=== PATIENT | female | born 1940 | race Caucasian/White ===

== ENCOUNTER 2020-04-20 09:11 | Outpatient (CLI) | payer MEDICARE ==
--- NOTE | 2020-04-20 09:55 | ULT ---
ULTRASOUND ABDOMINAL AORTA: HISTORY: Peripheral vascular disease, screen for abdominal aortic aneurysm. FINDINGS: The abdominal aorta measurements are as follows. Proximal: 2 x 1.4 x 1.7 cm. Mid: 1.5 x 1.8 x 2.3 cm. Distal: 2 x 1.4 x 1.8 cm. IMPRESSION: No evidence of abdominal aortic aneurysm. POS: [facility]
--- NOTE | 2020-04-20 10:51 | CT ---
CT CHEST WITHOUT CONTRAST FOR LUNG CANCER SCREENING: HISTORY: Personal history of nicotine dependence. COMPARISON: None. FINDINGS: Lung screening specific (lung-RADS): No suspicious solid, part solid, or ground-glass pulmonary nodu le. Two separate 2 mm pulmonary nodules right lower lobe axial image 77 coronal image 95. Potentially significant incidentals (lung-RADS category S): Negative. Pulmonary incidentals: Scattered small micronodules some with a pleural tail largest lower lobe axia l image 110 measuring 2 mm. Some mild bronchiectasis. Low-grade debris within the left and right ma instem bronchi. Other incidentals: Moderate vascular calcifications of the aorta. The proximal descending thoracic aorta measures 3.3 cm. The distal thoracic aorta measures 3.5 cm. No significant pericardial fluid. Sternum and manubrium are intact. The thoracic spine is intact. No suspicious osteolytic or osteobl astic lesions. IMPRESSION: 1. Lung RADS category 2: benign appearance or behavior. Continued annual screening is recommended. 2. Lung RADS category S: negative. No new or potentially significant incidental findings requiring urgent additional followup. 3. Scattered pulmonary micronodules measuring less than 3 mm. 4. Proximally seen thoracic aorta measures up to 3.3 cm and descending thoracic aorta distally abov e the diaphragmatic hiatus measures 3.5 cm. POS: [facility]
--- NOTE | 2020-04-20 13:43 | ULT ---
BILATERAL LOWER EXTREMITY ARTERIAL DOPPLER STUDY: 04/20/20 Arteries to both lower extremities evaluated with ultrasound color Doppler and spectral analysis with velocities. INDICATIONS: Peripheral vascular disease. Long history of smoking. RIGHT LOWER EXTREMITY: The right common femoral artery shows a monophasic waveform with velocity recording at 147 cm/s systo lic. The profunda is monophasic. The right femoral artery does not show an adequate waveform and is not adequately evaluated. This may be due to poor flow and proximal occlusion. Very low velocities are noted. The right popliteal artery is monophasic. All arteries below the knee including anterior tibial arter y, posterior tibial artery, and dorsalis pedis are monophasic with reduced velocities. LEFT LOWER EXTREMITY: The left common femoral artery is biphasic with velocities at 161 cm/s systolic. The profunda is biphasic. The left femoral artery is biphasic with symmetric velocities. The left popliteal artery is monophasic with reduced velocities. Anterior tibial artery is biphasic with reduced velocities. The posterior tibial artery and dorsalis pedis artery are monophasic. IMPRESSION: Evidence of moderately severe bilateral arterial occlusive disease. Findings are more severe on the r ight as noted above. POS: [facility]
--- NOTE | 2020-04-21 16:09 | MMO ---
Bilateral MAMMO Bilat Screen [facility]. CLINICAL HISTORY: Patient is 79 years old and is seen for screening. The patient has no family history of breast cancer. The patient has no personal history of cancer. VIEWS: The views performed were: bilateral craniocaudal with tomosynthesis and bilateral mediolateral oblique with tomosynthesis. This study has been interpreted with the assistance of computer-aided detection. MAMMOGRAM FINDINGS: There are scattered fibroglandular densities. There are benign appearing calcifications seen in both breasts. There are also vascular calcifications. There are no suspicious masses, suspicious calcifications, or new areas of architectural distortion. IMPRESSION: THERE IS NO MAMMOGRAPHIC EVIDENCE OF MALIGNANCY. A ROUTINE FOLLOW-UP MAMMOGRAM IN 1 YEAR IS RECOMMENDED. THE RESULTS OF THIS EXAM WERE SENT TO THE PATIENT. ACR BI-RADS Category 2 - Benign finding MAMMOGRAPHY NOTE: 1. A negative mammogram report should not delay a biopsy if a dominant of clinically suspicious mass is present. 2. Approximately 10% to 15% of breast cancers are not detected by mammography. 3. Adenosis and dense breasts may obscure an underlying neoplasm. Reported by: DEANDRE ESTEVEZ MD Electonically Signed: [id number]
== END 2020-04-20 09:12 | disposition home or self-care (01) ==
LOC: BICULT 09:11
PROVIDERS: ATTEND Family Medicine
DX: Z12.31 Encounter for screening mammogram for malignant neoplasm of breast (principal); Z13.6 Encounter for screening for cardiovascular disorders; Z12.2 Encounter for screening for malignant neoplasm of respiratory organs; F17.210 Nicotine dependence, cigarettes, uncomplicated; R91.8 Other nonspecific abnormal finding of lung field; I70.213 Atherosclerosis of native arteries of extremities with intermittent claudication, bilateral legs
CPT/HCPCS: 76775; 77063; 77067; 93923; G0297

== ENCOUNTER 2020-07-03 20:47 | Observation (INO) | payer MEDICARE ==
[~2020-07-03 20:47] MED LIST: Iopamidol-370 76% 500 ML 1 ML ONE
--- NOTE | 2020-07-03 21:13 | RAD ---
XR Chest 1 View Portable HISTORY: Dizziness, nausea and light headache COMPARISON: 07/14/2016 FINDINGS: The heart size is normal. The lungs are well expanded without focal areas of consolidation, pneumothorax or pleural effusions. IMPRESSION: No radiographic evidence of acute cardiopulmonary process.
[2020-07-03 21:47] LABS: #Basophils 0.1 thou/uL (0.0-0.2); #Eosinphils 0.2 thou/uL (0.0-0.7); #Lymphocytes 4.5 thou/uL (1.20-3.40); #Monocytes 0.9 thou/uL (0.11-0.59); #Neutrophils 6.1 thou/uL (1.40-6.50); %Basophils 1.1 % (0.0-1.0); %Eosinophils 1.9 % (0.0-10.0); %Lymphocytes 38.3 % (21.0-51.0); %Monocytes 7.5 % (0.0-10.0); %Neutrophils 51.4 % (42.0-75.0); Hemoglobin 15.4 g/dL (12.0-16.0); Mean Corpuscular HGB CONC 33.3 g/dL (32.0-36.0); Mean Corpuscular Hemoglobin 30.4 pg (27.0-31.0); Mean Corpuscular Volume 91.1 fL (78.0-98.0); Mean Platelet Volume 7.7 fL (7.4-10.4); Platelet Count 250 thou/uL (130-400); RBC Distribution Width 11.8 % (11.5-14.5); Red Blood Cell (RBC) Count 5.06 mill/uL (4.20-5.40); White Blood Cell (WBC) Count 11.9 thou/uL (4.8-10.8)
[2020-07-03 22:04] LABS: ALT (SGPT) 11 U/L (8-55); AST (SGOT) 13 U/L (5-34); Albumin 4.5 g/dL (3.4-4.8); Alkaline Phosphatase 82 U/L (40-110); Anion Gap 14 mmol/L (10-20); BUN (Urea Nitrogen) 15 mg/dL (9.8-20.1); Bilirubin, Total 0.3 mg/dL (0.2-1.2); Calc. Creatinine Clearance 0 mL/min (70-130); Calcium 9.3 mg/dL (7.8-10.44); Carbon Dioxide 25 mmol/L (23-31); Chloride 105 mmol/L (98-107); Globulin 2.7 g/dL (2.4-3.5); Glucose 221 mg/dL (83-110); Potassium 3.6 mmol/L (3.5-5.1); Protein, Total 7.2 g/dL (5.8-8.1); Sodium 140 mmol/L (136-145)
[2020-07-03] MEDS ORDERED: Ondansetron ODT 4 MG TAB ONE (23:15)
[2020-07-03] MEDS ORDERED: Meclizine HCl 25 MG TAB ONE (23:15)
[2020-07-04] MEDS ORDERED: Ondansetron PF 4 MG/2 ML Vial ONE (00:21)
[2020-07-04] MEDS ORDERED: Meclizine HCl 25 MG TAB ONE (01:12)
[2020-07-04] MEDS ORDERED: Metoclopramide HCl 10 MG/2 ML VIAL ONE (01:54)
[2020-07-04] MEDS ORDERED: Metoclopramide 10 MG/10 ML UDCUP ONE (01:54)
[2020-07-04] MEDS ORDERED: Aspirin Chewable 81 MG TAB ONE ×2 (02:12→09:23)
[2020-07-04] MEDS ORDERED: Aspirin 325 MG TAB ONE (02:15)
--- NOTE | 2020-07-04 03:25 | PDOC.HHP ---
Hospitalist [facility] vertigo History of Present Illness: This is a 79-year-old female patient with a history of hypertension thyroid cancer and hypercholesterolemia who presents with vertigo since waking up yesterday in the morning. Patient notes that she woke up with sudden onset vitiligo with removing all around. She had no associated hearing loss or tinnitus. She has had a previous episode of vertigo stroke or any other neurological condition. Patient believes her vertigo was due to the fumes from ceramic tiles which were recently placed in her bathroom right across from where she slept. Symptoms no associated aggravating or relieving factors. She has had nausea but no vomiting. On arrival blood pressure was 198/79, pulse 74, temperature 98, respiratory rate 18 saturation 98% on room air. Labs showed leukocytosis of 11.9, chemistry showed glucose of 221. She had a CT scan of her head and [place] which showed no lesions to explain her condition. Chest x-ray was negative for any acute cardiopulmonary process. She received aspirin, metoclopramide and meclizine as well as ondansetron. Hospitalist team was consulted to admit. I time I went to assess her she had significant improvement in his symptoms and she stated that she wanted to go home. Convinced her that we would have to monitor here a little more given the risk that she may have a stroke. Allergies/Adverse Reactions: Allergy/AdvReac Type Severity Reaction Status Date / Time codeine Allergy Unverified 07/04/20 03:26 Past History: Past medical history: Hypercholesterolemia Past surgical history: None Family history: None of significance Social history: Patient smokes daily, denies alcohol or illicit drug use. She lives alone with her dog Hospitalist [facility] ROS Constitutional: denies: fever, chills, sweats, weakness Respiratory: denies: cough, shortness of breath, hemoptysis, SOB with excertion Cardiovascular: denies: chest pain, palpitations, orthopnea, paroxysmal noc. dyspnea Genitourinary: denies: dysuria, frequency, incontinence, hematuria Musculoskeletal: denies: neck pain Neurological: denies: weakness, numbness, incoordination All other systems reviewed; all pertinent +/- noted in HPI/Subj Hospitalist Exam General Appearance: awake alert General - other findings: In no acute distress Eye: PERRL, anicteric sclera ENT: normocephalic atraumatic Neck: supple, symmetric, no JVD Heart: RRR, no murmur, no gallops, no rubs Respiratory: CTAB, no wheezes, no rales, no ronchi Gastrointestinal: soft, non-tender, non-distended, normal bowel sounds Extremities: no cyanosis, no clubbing, no edema Skin: normal turgor, no lesions Neurological: cranial nerve grossly intact, no weakness, no focal deficits Musculoskeletal: normal tone, normal strength Psychiatric: normal affect, normal behavior, A&O x 3 Hospitalist Results Result Diagrams: 07/03/20 21:07/03/20 21: Lab results: Laboratory Last Values WBC 11.9 thou/uL (4.8-10.8) H 07/03/20: RBC 5.06 mill/uL (4.20-5.40) 07/03/20: Hgb 15.4 g/dL (12.0-16.0) 07/03/20: Hct 46.1 % (36.0-47.0) 07/03/20: MCV 91.1 fL (78.0-98.0) 07/03/20: MCH 30.4 pg (27.0-31.0) 07/03/20: MCHC 33.3 g/dL (32.0-36.0) 07/03/20: RDW 11.8 % (11.5-14.5) 07/03/20: Plt Count 250 thou/uL (130-400) 07/03/20: MPV 7.7 fL (7.4-10.4) 07/03/20: Neutrophils % 51.4 % (42.0-75.0) 07/03/20: Lymphocytes % 38.3 % (21.0-51.0) 07/03/20 Monocytes % 7.5 % (0.0-10.0) 07/03/20: Eosinophils % 1.9 % (0.0-10.0) 07/03/20: Basophils % 1.1 % (0.0-1.0) H 07/03/20: Neutrophils # 6.1 thou/uL (1.40-6.50) 07/03/20 21:31 Lymphocytes # 4.5 thou/uL (1.20-3.40) H 07/03/20 21: Monocytes # 0.9 thou/uL (0.11-0.59) H 07/03/20 21: Eosinophils # 0.2 thou/uL (0.0-0.7) 07/03/20 21: Basophils # 0.1 thou/uL (0.0-0.2) 07/03/20 21: Sodium 140 mmol/L (136-145) 07/03/20 21: Potassium 3.6 mmol/L (3.5-5.1) 07/03/20: Chloride 105 mmol/L (98-107) 07/03/20 21: Carbon Dioxide 25 mmol/L (23-31) 07/03/20 21: Anion Gap 14 mmol/L (10-20) 07/03/20: BUN 15 mg/dL (9.8-20.1) 07/03/20 21: Creatinine 0.79 mg/dL (0.6-1.1) 07/03/20 21: Estimated GFR (MDRD) 70 07/03/20 21: Glucose 221 mg/dL (83-110) H 07/03/20: Calcium 9.3 mg/dL (7.8-10.44) 07/03/20 21: Total Bilirubin 0.3 mg/dL (0.2-1.2) 07/03/20 21: AST 13 U/L (5-34) 07/03/20 21: ALT 11 U/L (8-55) 07/03/20 21: Alkaline Phosphatase 82 U/L (40-110) 07/03/20 21: Troponin I 0.014 ng/mL (< 0.028) 07/03/20 21: Serum Total Protein 7.2 g/dL (5.8-8.1) 07/03/20 21: Albumin 4.5 g/dL (3.4-4.8) 07/03/20: Globulin 2.7 g/dL (2.4-3.5) 07/03/20 21:31 Albumin/Globulin Ratio 1.7 g/dL (1.2-2.2) 07/03/20 21:31 Hospitalist H&P A/P Plan: This is a 79-year-old female patient history of hypertension who presents with severe vertigo of unclear etiology. Vertigo Concerns for posterior circulation strokehe has a history of smoking and hypertension hypercholesterolemia This could possibly be due to intoxication from fumes as he said Symptoms seems to have significantly improvedhe is received meclizine and ondansetron We will monitor sodium Consider an MRI or CT scan and CTA abdomen negative to rule out any posterior cerebral stroke. Neurology assessment in the morning. Hypertension Blood pressure stable Resume home medications once verified. DVT prophylaxisLovenox CODE STATUSfull
[2020-07-04] MEDS ORDERED: Ondansetron ODT 4 MG TAB PO PRN (04:19)
[2020-07-04] MEDS ORDERED: Ondansetron PF 4 MG/2 ML Vial IVP PRN (04:19)
[2020-07-04] MEDS ORDERED: Meclizine HCl 12.5 MG TAB PO PRN (04:19)
[2020-07-04 05:04] VITALS: BP 171/69; TEMP 97.9
[2020-07-04] MEDS ORDERED: hydrALAZINE 20 MG/ML VIAL SLOW IVP PRN (08:19)
[2020-07-04] MEDS ORDERED: Sodium Chloride 0.65% Nasal 44 ML BOT EA NARE PRN (08:19)
[2020-07-04] MEDS ORDERED: Loratadine 10 MG TAB PO PRN (08:19)
[2020-07-04] MEDS ORDERED: Cepastat Lozenges 1 LOZ PO PRN (08:19)
[2020-07-04] MEDS ORDERED: Senokot S 8.6-50 MG TAB PO PRN (08:19)
[2020-07-04] MEDS ORDERED: Loperamide HCl 2 MG CAP PO PRN (08:19)
[2020-07-04] MEDS ORDERED: Calcium Carbonate 500 MG ChewTAB PO PRN (08:19)
[2020-07-04] MEDS ORDERED: Zolpidem Tartrate 5 MG TAB PO PRN (08:19)
[2020-07-04] MEDS ORDERED: Bisacodyl 5 MG TAB PO PRN (08:19)
[2020-07-04] MEDS ORDERED: GUAIFENESIN SF SOLN 200 MG/10 ML UDCUP PO PRN (08:19)
[2020-07-04] MEDS ORDERED: Acetaminophen 325 MG TAB PO PRN (08:22)
--- NOTE | 2020-07-04 08:35 | CT ---
PRELIMINARY REPORT/[facility]/EMERGENCY AFTER HOURS PROCEDURE: EXAM: CTA Head and Neck with Intravenous Contrast. CT Head without Contrast. CLINICAL HISTORY: Past medical history significant for thyroidectomy with unknown thyroid cancer as well as hysterectom y and stents placed in the left lower extremity for peripheral vascular disease patient is a regular smoker since she was 13 years old smoking approximately half a pack per day. Patient denies any arrhy thmia no history of heart disease had a recent echo that was read as normal patient states that she h as never had a stroke in the past. Patient woke up this morning with abrupt onset vertigo with a sens ation of her spinning around the room patient states that she has had some remodeling done in her bat hroom and the fumes from the bathroom have been irritating her. The vertigo has been persistent she h as not taken anything for this she has had some nausea without vomiting for it. Patient's past medica l history also significant for hypertension hyperlipidemia takes amlodipine no changes in medications . COMPARISON: None provided. FINDINGS: CT HEAD: No acute intracranial hemorrhage, mass-effect, or midline shift is seen. Nonspecific patchy confluent white matter hypoattenuation suggesting chronic age-related small vessel changes. No CT evidence of acute infarct in a large vascular territory. Atherosclerotic calcifications at the skull base. Chroni c appearing cortical infarcts in the right occipital lobe. CTA NECK: Dominant right vertebral artery. Slightly hypoplastic left vertebral artery, particularly the V4 segm ent. Vertebral artery occlusion or dissection is seen. Extensive atherosclerotic and atheromatous simeon que in the visualized thoracic aorta. Moderate to severe focal narrowing at the origin of the left co mmon carotid artery. Mild to moderate multifocal narrowing in the right and remaining left common car otid artery. No common carotid artery occlusion or dissection is seen. Proximal ICA atherosclerotic d isease bilaterally causing 50-60% stenosis on the right and 60-75% stenosis on the left by NASCET cri teria. CTA HEAD: No occlusion, aneurysm, or significant stenosis is seen in the anterior, middle, or posterior cerebra l arteries or the basilar artery. Mild multifocal narrowing of the intracranial ICA; no occlusion or aneurysm is seen. IMPRESSION: 1. No acute intracranial hemorrhage or mass-effect. Age-related small vessel changes. 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 2. No intracranial large vessel occlusion, aneurysm, or significant focal stenosis. Variant anatomy a s described above. 3. Proximal ICA atherosclerotic disease bilaterally causing 50-60% stenosis on the right and 60-75% s tenosis on the left by NASCET criteria. 4. Moderate focal narrowing at the origin of the left common carotid artery. Additional, multifocal C CA narrowing bilaterally as described above. ELECTRONICALLY SIGNED BY: Gaston Verduzco MD Jul 04, 2020 12:56:24 AM [employer] This report is intended for review by the ordering physician only, in accordance of law. If you recei ve this report in error, please call [facility] at [phone]. FINAL REPORT CTA HEAD WITH AND WITHOUT CONTRAST CTA NECK WITH CONTRAST: CTA head performed pre and post IV contrast with post contrast images performed with multiplanar yarely nstruction and 3D post processing. CTA neck performed with 3D post processing. I am in agreement wi th the preliminary report. POS: [facility]
[2020-07-04] MEDS ORDERED: Aspirin Chewable 81 MG TAB PO SCH (09:00)
[2020-07-04] MEDS ORDERED: Enoxaparin Sodium 40 MG/0.4 ML SYRINGE SC SCH (09:00)
[2020-07-04] MEDS ORDERED: Famotidine 20 MG TAB PO SCH (09:00)
[2020-07-04] MEDS ORDERED: Enoxaparin Sodium 40 MG/0.4 ML SYRINGE ONE (09:23)
[2020-07-04] MEDS ORDERED: Famotidine 20 MG TAB ONE (09:23)
--- NOTE | 2020-07-04 11:26 | PDOC.DS.DS ---
Provider Date of Admission: 07/04/20 02:48 Date of Discharge: 07/04/20 Admitting Provider: Vasyl Root MD Primary Care Physician: Tara Dawn Hospital Course: 79-year-old female patient with a history of hypertension thyroid cancer and hypercholesterolemia who presents with vertigo since waking up yesterday in the morning. Patient notes that she woke up with sudden onset vitiligo with removing all around. She had no associated hearing loss or tinnitus. She has had a previous episode of vertigo stroke or any other neurological condition. Patient believes her vertigo was due to the fumes from ceramic tiles which were recently placed in her bathroom right across from where she slept. Symptoms no associated aggravating or relieving factors. She has had nausea but no vomiting. On arrival blood pressure was 198/79, pulse 74, temperature 98, respiratory rate 18 saturation 98% on room air. Labs showed leukocytosis of 11.9, chemistry showed glucose of 221. She had a CT scan of her head and [place] which showed no lesions to explain her condition. Chest x-ray was negative for any acute cardiopulmonary process. She received aspirin, metoclopramide and meclizine as well as ondansetron. Hospitalist team was consulted to admit. I time I went to assess her she had significant improvement in his symptoms and she stated that she wanted to go home. Convinced her that we would have to mo nitor here a little more given the risk that she may have a stroke. After admission we saw and examined in the emergency room, we recommended her to go for MRI brain and echocardiography and surgeon consultation for carotid stenosis, patient decided to leave AGAINST MEDICAL ADVICE, we have not provided any prescription, patient understands risk of stroke. Resuscitation Status: 07/04/20 08:20 Resuscitation Status Routine Resuscitation Status: FULL: Full Resuscitation Lab Results: 07/03/20 21:31 07/03/20 21:31 Abnormal Lab Results - Last 48 hrs 07/03/20 21:31: WBC 11.9 H, Basophils % 1.1 H, Lymphocytes # 4.5 H, Monocytes # 0.9 H Vitals: Vital Signs (12 hours) Temp Pulse Resp BP Pulse Ox 07/04/20 05:03 97.9 F 67 15 171/69 H 95 Physical Exam: The patient was seen and examined on the day of discharge. General Appearance: NAD, awake alert Eye: PERRL, anicteric sclera ENT: normocephalic atraumatic, no oropharyngeal lesions Neck: symmetric, no JVD, no thyromegaly Respiratory: no wheezes, no rales, no ronchi Cardiovascular: RRR, no murmur, no gallops, no rubs, normal peripheral pulses Gastrointestinal: soft, non-tender, non-distended, normal bowel sounds Extremities: no clubbing, no edema Skin: normal turgor, no lesions Neurological: no focal deficits Musculoskeletal: normal tone, normal strength PSYCH: normal affect, normal behavior, A&O x 3 Problem (1) Vertigo Code(s): R42 - DIZZINESS AND GIDDINESS Status: Acute (2) Carotid stenosis Code(s): I65.29 - OCCLUSION AND STENOSIS OF UNSPECIFIED CAROTID ARTERY Status: Chronic Qualifiers: Laterality: bilateral Qualified Code(s): I65.23 - Occlusion and stenosis of bilateral carotid arteries (3) Hypertension Code(s): I10 - ESSENTIAL (PRIMARY) HYPERTENSION Status: Chronic (4) Dyslipidemia Code(s): E78.5 - HYPERLIPIDEMIA, UNSPECIFIED Status: Chronic Plan Allergies: codeine Allergy (Unverified 07/04/20 03:26) Activity:: Activity as Tolerated Nourishment:: Heart Healthy Diet Therapies:: Not Applicable Equipment/Supplies:: Not Applicable IV Therapy:: Not Applicable Referrals: Tara Man MD [Primary Care Provider] - Disposition: LEFT AGAINST MEDICAL ADVICE Quality CORE MEASURES:: N/A
== END 2020-07-04 10:39 | disposition left against medical advice (07) ==
LOC: ERS 20:47 → ERHOLD 07-04 02:48 → SURG B 07-04 04:28 → ERHOLD 07-04 04:46
PROVIDERS: ADMIT Student in an Organized Health Care Education/Training Program; ATTEND Internal Medicine
DX: R42 Dizziness and giddiness (principal); I65.23 Occlusion and stenosis of bilateral carotid arteries; I10 Essential (primary) hypertension; E78.5 Hyperlipidemia, unspecified; E78.00 Pure hypercholesterolemia, unspecified; F17.210 Nicotine dependence, cigarettes, uncomplicated; E89.0 Postprocedural hypothyroidism; Z53.29 Procedure and treatment not carried out because of patient's decision for other reasons; Z79.899 Other long term (current) drug therapy; Z88.5 Allergy status to narcotic agent; Z95.820 Peripheral vascular angioplasty status with implants and grafts
CPT/HCPCS: 70496; 70498; 71045; 80053; 84484; 85025; 93005; 96372; 96374; 96375; 97139; 99285; G0378; 36415; J1650; J2405; J2765; Q0162; Q9967